=== PATIENT | female | born 2000 | race Caucasian/White ===

== ENCOUNTER 2023-04-11 21:55 | Emergency (ER) | payer BC, SELFPAY ==
--- NOTE | ~2023-04-11 | XR_ITS ---
PA, oblique, and lateral views of the right third finger CLINICAL HISTORY: Injury FINDINGS: No fracture or dislocation seen. Osseous alignment is anatomic. Joint spaces are preserved. Soft tissues are unremarkable. IMPRESSION: Unremarkable exam. Reviewed, dictated and finalized at location M. IMPRESSION: Unremarkable exam.
[2023-04-11 21:58] VITALS: BP 128/79; PULSE 99; RESP 18; TEMP 36.9; O2SAT 99
[2023-04-12] MEDS: IBUPROFEN 400 MG TABLET 800 MG PO (00:45)
--- NOTE | 2023-04-12 00:46 | ED.GENADULT ---
HPI - General Adult General Chief complaint: Extremity Problem,Nontraumatic Stated complaint: R hand third finger injury Time Seen by Provider: 04/12/23 00:45 Source: patient Mode of arrival: ambulatory Limitations: no limitations History of Present Illness HPI narrative: This is a 22-year-old female who presents to the ED with chief complaint of right hand injury occurring just prior to arrival. Reports she Cluster hand in the door and injured to the right middle finger. Reports immediate pain. She denies any further site of pain or injury. Denies numbness or weakness. Related Data Allergies Allergy/AdvReac Type Severity Reaction Status Date / Time No Known Allergies Allergy Verified 04/11/23 22:01 Exam Narrative: GENERAL: Well-appearing, well-nourished, and in no acute distress. HEAD: Normocephalic, atraumatic. EYES: PERRLA and EOMI. ENT: Nares clear, no rhinorrhea or epistaxis. Mucous membranes moist. Oropharynx without tonsillar hypertrophy exudate or other lesions. NECK: Supple. No adenopathy or masses. CHEST: No respiratory distress. Clear to auscultation. No wheezes rales or rhonchi HEART: Regular rate and rhythm. No murmur heard. Normal peripheral pulses. ABDOMEN: Soft, nontender, nondistended, normal active bowel sounds. MSK: Right hand: Right middle finger with bruising to the nail plate. She is most tender at the distal right middle finger. No obvious deformity. Minimal bruising otherwise. Neurovascularly intact distally. Left hand: Benign. SKIN: Warm, dry, no rash. Good cap refill. NEURO: Alert and oriented x3. No focal deficits. PSYCH: Normal mood and affect. Course Vital Signs Vital signs: Vital Signs Temperature 98.5 F 04/11/23 21:58 Pulse Rate 99 04/11/23 21:58 Respiratory Rate 18 04/11/23 21:58 Blood Pressure 128/79 04/11/23 21:58 Pulse Oximetry 99 04/11/23 21:58 Oxygen Delivery Room Air 04/11/23 21:58 Temperature 98.5 F 04/11/23 21:58 Pulse Rate 99 04/11/23 21:58 Respiratory Rate 18 04/11/23 21:58 Blood Pressure 128/79 04/11/23 21:58 Pulse Oximetry 99 04/11/23 21:58 Oxygen Delivery Room Air 07/18/23 21:58 Medical Decision Making MDM Narrative Medical decision making narrative: This is a 22-year-old female who presents to the ED with chief complaint of right middle finger injury occurring just prior to arrival after shutting her hand in a car door. Vitals are normal. Exam does reveal some bruising to the nail plate distally, as well as tenderness distally in the right middle finger. No gross deformity or other bruising. Minimal swelling. X-ray does not reveal any obvious fractures. Symptoms are consistent with contusion. She was placed in a metal finger splint and encouraged to follow-up with PCP. Supportive measures for home discussed and return precautions were given. Patient is understanding and agreeable with this plan for discharge and follow-up. Vital Signs Vital Signs: Vital Signs Temperature 98.5 F 04/11/23 21:58 Pulse Rate 99 04/11/23 21:58 Respiratory Rate 18 04/11/23 21:58 Blood Pressure 128/79 04/11/23 21:58 Pulse Oximetry 99 04/11/23 21:58 Oxygen Delivery Room Air 04/11/23 21:58 Temperature 98.5 F 04/11/23 21:58 Pulse Rate 99 04/11/23 21:58 Respiratory Rate 18 04/11/23 21:58 Blood Pressure 128/79 04/11/23 21:58 Pulse Oximetry 99 04/11/23 21:58 Oxygen Delivery Room Air 04/11/23 21:58 Discharge Plan Discharge Clinical Impression: Contusion of right middle finger Patient Disposition: Home, Self-Care Condition: Stable Instructions: Antibiotic Form Additional Instructions: Your exam and imaging are reassuring. Symptoms are consistent with contusion. There may be an occult fracture not picked up by x ray today. Please take tylenol and ibuprofen every 4-6 hours as needed. Use 600 mg ibuprofen and 500mg tylenol. IF you have any new or worsening symptoms that
== END 2023-04-12 00:55 | disposition home or self-care (01) ==
PROVIDERS: Emergency Provider Physician Assistant; PCP Family Medicine
DX: S60.031A Contusion of right middle finger without damage to nail, initial encounter (principal); W23.0XXA Caught, crushed, jammed, or pinched between moving objects, initial encounter
CPT/HCPCS: 29130; 73140; 99283; A9270

== ENCOUNTER 2024-08-27 15:05 | Outpatient (CLI) | payer BC, SELFPAY ==
--- NOTE | ~2024-08-27 | XR_ITS ---
EXAMINATION: XR lumbar spine 2-3V, XR hip BI 2V w AP pelvis DATE: 08/27/2024 15:42 INDICATION: Low back pain and pelvic pain, left greater than right TECHNIQUE: 1. Anteroposterior and lateral views of the lumbar spine, and cone-down lateral view of the lumbosacr al junction were obtained. 2. Anteroposterior the pelvis and anteroposterior and frog-leg lateral views of the left and of the r ight hips. COMPARISON: None. FINDINGS: Lumbar spine: Alignment is normal. Vertebral body and disc heights are normal. Profiled portions of the lumbar face t joints appear normal. Pelvis and bilateral hips: Alignment is normal. No fracture or suspected osteonecrosis. Bilateral hip and sacroiliac joint space s are normal. Soft tissues are unremarkable. IMPRESSION: 1. Negative lumbar spine, pelvis and bilateral hip radiographs. Reviewed, dictated and finalized at location A. R LINEMAN TECHNICIAN IMPRESSION: 1. Negative lumbar spine, pelvis and bilateral hip radiographs.
== END 2024-08-27 15:06 | disposition home or self-care (01) ==
PROVIDERS: PCP Family Medicine
DX: M54.50 Low back pain, unspecified (principal)
CPT/HCPCS: 72100; 73521

== ENCOUNTER 2024-12-30 14:22 | Outpatient (CLI) | payer BC, SELFPAY ==
[2024-12-30 14:40] LABS: Basophils Percent Auto 0.6 % (0.2-1.2); Eosinophils Absolute Auto 0.1 K/mm3 (0-0.3); Eosinophils Percent Auto 2.3 % (0-4.4); Hemoglobin 11.4 g/dL (12.0-15.0); Immature Granulocyte Absolute 0.01 K/mm3 (0.00-0.031); Immature Granulocyte Percent A 0.2 % (0-0.5); Lymphocytes Absolute Auto 1.57 K/mm3 (0.9-3.2); Lymphocytes Percent Auto 32.7 % (18.3-44.2); Mean Corpuscular HGB Conc 32.6 g/dl (32-36); Mean Corpuscular Hemoglobin 27.2 pg (26-34); Mean Corpuscular Volume 83.5 fl (80-100); Mean Platelet Volume 9.7 fl (7.4-10.4); Monocytes Absolute Auto 0.5 K/mm3 (0.1-0.6); Neutrophils Absolute Auto 2.6 K/mm3 (1.3-6.7); Neutrophils Percent Auto 54.2 % (45.5-73.1); Platelet Count Result 243 k/mm3 (150-375); Red Blood Count 4.19 M/mm3 (4.2-5.4); Red Cell Distribution Width 13.8 % (11.5-14.5); White Blood Count 4.8 K/mm3 (4.5-10.0)
--- OUTSIDE RECORDS SUMMARY | 2024-12-30 16:29 | XMS_ITS | Clinical Summary ---
Author Organization [facility] Address [address] [place] [address] Care Team Providers Care Ssrs Report Developer Name Role Phone Unavailable Primary Care Provider Unavailabl e Source Comments [facility],non-owned Affiliates and Associated Physician Practices is amultiple site organization consisting of ambulatory clinics and hospital sitesin [place], [place], [place] and [place]. This disclosure is being madepursuant to the Care Everywhere program and may not contain all information available regarding this patient. Last updated 18.[facility] Allergies No known active allergies Medications * Be aware that medications may not be up to date on this document. Alwaysverify current medications with the patient. Medication Sig Dispensed Refills Start Date End Date Status albuterol HFA (PROVENTIL;VENTOLIN;[place] OAIR) 108 (90 BASE) MCG/ACT inhaler Inhale 2 Puffs by mouth every 6 hours as needed Active Active Problems Problem Noted Date Diagnosed Date Spinal asymmetry (< 10 degrees) 10/08/2015 Midline thoracic back pain 10/08/2015 Social History Tobacco Use Types Packs/Day Years Used Date Smoking Tobacco: Never Assessed Sex and Gender Information Value Date Recorded Sex Assigned at Not on file Gender Identity Not on file Sexual Orientation Not on file Last Filed Vital Signs Vital Sign Reading Time Taken Comments Blood Pressure - - Pulse - - Temperature - - Respiratory Rate - - Oxygen Saturation - - Inhaled Oxygen Concentration - - Weight 48.7 kg (107 lb 5.8 oz) 10/08/2015 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 Height 148.7 cm (4' 10.54 ) 10/08/2015 3:[address] Body Mass Index 22.02 10/08/2015 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 Plan of Treatment Health Maintenance Due Date Last Done Comments PAP SMEAR 2002 HIV SCREENING 2017 HPV VACCINE (1 - 3-dose series) 2017 CHLAMYDIA/GONORRHEA SCREENING 2018 MENINGOCOCCAL (Group B) VACC INE SHARED DECISION-MAKING (1 of 2 - Standard) 2018 HEPATITIS C SCREENING 09/18/2020 DTAP/TDAP/TD VACCINES (1 - Tdap) 2021 HEPATITIS B VACCINE (1 of 3 - 19+ 3-dose series) 2021 COVID-19 VACCINE (1 - 2023-2 5 season) 2024 DEPRESSION SCREENING 09/25/2024 INFLUENZA VACCINE (Season Ended) 2025 ZOSTER VACCINE (1 of 2) 2052 HIB VACCINE Aged Out No longer eligi ble based on patient's age to complete this topic MENINGOCOCCAL GROUPS A/C/Y/W VACCINE Aged Out No longer eligible b ased on patient's age to complete this topic PNEUMOCOCCAL VACCINE Aged Out No long er eligible based on [place] [address]
--- OUTSIDE RECORDS SUMMARY | 2024-12-30 16:30 | XMS_ITS | Continuity of Care Document ---
Author Organization [facility] Address [address] [place] [address] [address] [place] [address] Phone Care Team Providers Care Physician Relations Representative Name Role Phone Villareal OD, Héctor Unavailable Unavailable Procedures Procedure Date Eye Exam, New Patient Refraction Advance Directives Directive Yes / No Effective Date File Name No Information Encounters Encounter Description Practice Location Reason(s) For Visit Diagnoses Date Provider Providers Copied on Encounter Merged with [facility], [address] [place], [place], [id number], [place] tel:[phone] [facility] No Information [phone] Villareal OD Héctor. [address] , [address], [place], [address], [place]. tel:[phone] Family History Family Member Type Diagnosis Age At Onset No Information Payers Payer name Insurance type Covered constitution party ID Authoriza tichidi(s) Medicaid [facility] [id number] Social History Type Description Quantity Date Captured Comments Sex Female Smoking Status No Information Chief Complaint And Reason For Visit No Information Reason For Referral Reason For Referral No Information History Of Present Illness Encounter Date Complaint History Of Prese nt Illness No Information Functional Status Date Functional Assessmen t No Information Instructions Date Instruction Additional Infor mation No Information Assessments Type Assessment Date No Information Patient Care Teams Name Effective Dates (start - stop) Status Members No Information
--- OUTSIDE RECORDS SUMMARY | 2024-12-30 16:30 | XMS_ITS | Data Portability ---
Author Organization [place] - [email or web address], Main Office Address [address] [place] [address] Assessment No assessment recorded. Plan of Treatment Reminders Order Date Submit Date Provider Last Modified By Organization Details Last Modified Time Details Appointments None recorded. Lab CBC w/ auto diff 2024 025 [facility] (Lab), [address] [place], [address], 5 03:07:32 unlisted lab - food allergy profile [address] [address] (Lab), [address] [place], [address], 5 08:11:24 vitamin D, 25-hydroxy, total, serum [address] (Lab), [address] [place], [address], 4 08:34:21 CBC w/ auto diff [address] (Lab), [address] [place], [address], 4 08:34:21 TSH, serum or plasma [address] (Lab), [address] [place], [address], 4 08:34:21 vitamin B12 + folate, serum or blood [address] (Lab), [address] [place], [address], 4 08:34:22 CMP, serum or plasma 2023 024 [facility] (Lab), [address] [place], [address], 4 22:00:19 HbA1c (hemoglobin A1c), blood [address] (Lab), [address] [place], [address], 4 08:34:21 Referral physical therapist referral - Please call pt to schedule 2024 025 [place] [facility], [address] [facility], [place], [address], 5 14:56:47 Procedures upper endoscopy procedure (EGD) (PROC) 2024 025 [facility] (Pre-Screen), [address] [place], [address], 5 08:08:59 Surgeries None recorded. Imaging XR, abdomen - pLease comment on stool burden on upright KUB thanks [address] [facility], [address] [address], [place], [address], 5 07:57:49 US, abdomen, complete [address] [facility], [address] [address], [facility], [place], [address], 5 08:35:47 XR, lumbosacral spine, 2 or 3 view 2023 024 [email or web address] 256 Not available 4 08:59:54 XR, hip + pelvis, bilateral 2023 024 SERGEI Not available 4 11:33:34 Medication Orders amoxicillin 500 mg capsule 2024 025 [place] [id number], [address], [place], [place], [id number], 5 11:01:06 omeprazole 20 mg capsule,del ayed release 2024 025 [place] [facility] #[id number], [address], [place], [place], [id number], 15:32:17 Patient TargetsNo targets recorded. Patient Instructions Encounter Date Encounter Id Patient Instructions Last Modified By Organization Details Last Modified Time 11/21/2024 [id number] Discussed with the patient in detail possibility of IBS has been discussed possibility of constipation has been discussed. Also gallbladder dysfunction has been discussed patient's abdomen is benign on examination and the pain is more diffuse. I will advise patient to get the ultrasound of the abdomen I also reviewed the lab workup which shows normal liver functions. We will proceed with the upper endoscopy to rule out peptic ulcer disease encouraged patient to take some MiraLax and fiber follow with me in 3-4 months if all these tests are normal patient can try dicyclomine to see if it has the bloating and gas. Not available 11/21/2024 16:30:51 Reason for Referral Physical Therapist Referral for Low back pain Please call pt to schedule Referring Physician: Deirdre Hogue, Family Medicine, Encounter Date: 10/01/2024 Results Created Date Observation Date Name Description Value Unit Range Abnormal Flag Note LastModifiedBy Organization Detail LastModifiedTime 08/28/2008/27/2024 XR, chest , 2 view No observ ation record ed. [email or web address] [place] [address] [address], [place], [address], 10/31/2024 14:41:34 08/28/20 24 08/27/2024 XR, hip + pelvi s, bilat eral No observ ation record ed. [facility] [address], [place], [address], 08/28/2024 12:17:39 Result Notes None recorded. Problems Name Problem SNOMED Code Status Onset Date Resolution Date Notes Provider Name and Address Organization Details Recorded Time Low back pain 178285022 Active 2023 CARLOS Haney [address], [address], [place], [address], [employer] 4 14:55:00 Headache 62673590 Active 2023 CARLOS Haney [address], [address], [place], [address], [employer] 4 14:58:40 Anxiety 47942549 Active 2023 CARLOS Haney [address], [address], [place], [address], [employer] 4 15:01:24 Stomach ache 676903782 Active 2023 CARLOS Haney [address], [address], [place], [address], [employer] 4 15:03:20 Fatigue 59099500 Active 2023 CALROS Haney [address], [address], [place], [address], [employer] 4 15:06:43 Leukopenia 50650588 Active 2024 CARLOS Haney [address], [address], [place], [address], [employer] 5 15:31:57 Nausea 175038174 Active 2024 CARLOS Haney [address], [address], [place], [address], [employer] 5 09:01:34 Irritable bowel syndrome 57883232 Active 2024 Matt Myers MD [address] [facility], [address], [place], [address], [employer] 5 16:29:03 Constipation 21379256 Active 2024 Matt Myers MD [address], [address], [place], [address], [employer] 5 16:29:12 Abdominal pain 76932247 Active 2024 Matt Myers MD [address] [facility], [address], [place], [address], [employer] 5 16:30:04 Cervical lymphadenopath y 895276508 Active 2024 CARLOS Haney [address] [facility], [address] [facility], [place], [address], [employer] 5 10:59:52 Problem Notes None recorded. Procedures Surgical History Date Name Laterality Status Provider Name and Address Organization Details Recorded Time 2 Remove tonsils and adenoids completed Amanda Aceves RN [facility] [employer] [facility] 08/27/2024 14:45:00 Imaging Results Imaging Date Name Status LastModified by Organiz ation Details LastModified Time 08/27/2024 XR, chest, 2 view completed [email or web address] [address], [address], 10/31/2024 14:41:34 08/27/2024 XR, hip + pelvis, bilateral completed [address], [address], 08/28/2024 12:17:39 Procedure Notes None recorded. Medical Equipment None Reported. Allergies No known drug allergies Medications Name Sig Start Date Stop Date Status Note LastModified by Organization Details LastModified Time amoxicillin 500 mg capsule TAKE 1 CAPSULE BY MOUTH EVERY 12 HOURS FOR 10 DAYS DIRECTED active Not Available Not Available No t Available meloxicam 7.5 mg tablet TAKE 1 TABLET BY MOUTH DAILY FOR 14 DAYS 08/27 completed Not Available Not Available Not Available benzonatate 100 mg capsule TAKE 1 CAPSULE BY MOUTH THREE TIMES DAILY FOR 10 DAYS 08/27 completed Not Available Not Available Not Available omeprazole 20 mg capsule,del ayed release Take 1 capsule every day by oral route as directed for 30 days. active Not Available Not Available No t Available methylpredn isolone 4 mg tablets in a dose pack FOLLOW PACKAGE DIRECTION S 11/21 completed Not Available Not Available Not Available albuterol sulfate HFA 90 mcg/actuati on aerosol inhaler INHALE 1 TO 2 INHALATIO N BY MOUTH EVERY 4 HOURS NEEDED FOR WHEEZING 12/04 completed Not Available Not Available Not Available cyclobenzap rine 5 mg tablet 08/27 completed Not Available Not Available Not Available Vitals Date Recorded Body weight Body mass index (BMI) Body height Body temperature Heart rate Respiratory rate Oxygen saturation Oxygen saturation in Arterial blood by Pulse oximetry Pain severity - 0-10 verbal numeric rating [Score] - Reported Systolic blood pressure Diastolic blood pressure Provider Name and Address Organization Details Last Updated DateTime 4 93627.7 g 23.1 kg/m2 152.4 cm 97.9 [degF] 80 /min 20 /min 99 % 99 % 4 112 mm[Hg] 64 mm[Hg] Amanda Aceves RN [facility] [email or web address] 4 14:44:20 Date Recorded Body height Body mass index (BMI) Body weight Body temperature Heart rate Respiratory rate Oxygen saturation Oxygen saturation in Arterial blood by Pulse oximetry Pain severity - 0-10 verbal numeric rating [Score] - Reported Systolic blood pressure Diastolic blood pressure Provider Name and Address Organization Details Last Updated DateTime 5 152.4 cm 23.7 kg/m2 01717.4 8 g 98.4 [degF] 98 /min 20 /min 98 % 98 % 0 118 mm[Hg] 64 mm[Hg] Amanda Aceves RN [facility] [email or web address] 5 15:17:58 Date Recorded Body height Body mass index (BMI) Body weight Heart rate Oxygen saturation Oxygen saturation in Arterial blood by Pulse oximetry Systolic blood pressure Diastolic blood pressure Provider Name and Address Organization Details Last Updated DateTime 5 152.4 cm 23.6 kg/m2 24971.6 8 g 96 /min 99 % 99 % 120 mm[Hg] 62 mm[Hg] AAYUSH Angulo [facility] [employer] [facility] 5 16:00:20 Date Recorded Body height Body mass index (BMI) Body weight Body temperature Heart rate Respiratory rate Oxygen saturation Oxygen saturation in Arterial blood by Pulse oximetry Pain severity - 0-10 verbal numeric rating [Score] - Reported Systolic blood pressure Diastolic blood pressure Provider Name and Address Organization Details Last Updated DateTime 5 152.4 cm 24.1 kg/m2 71519.9 6 g 97.9 [degF] 69 /min 20 /min 99 % 99 % 2 112 mm[Hg] 70 mm[Hg] Amanda Aceves RN [facility] [employer] [facility] 5 10:49:13 Social History Question Answer Notes LastModified by Organizat ion Details LastModified Time Tobacco Smoking Status Never Smoker Amanda Aceves RN [facility] [employer] [facility] 08/27/2024 14:46:48 Do You Have An Advance Directive? No Information not available 10/01/2024 What Is Your Level Of Alcohol Consumption? Occasional Information not available 08/27/2024 What Is Your Level Of Caffeine Consumption? Moderate Information not available 08/27/2024 In The 14 Days Before Symptom Onset, Have You Had Close Contact With A Laboratory-confi rmed COVID-19 While That Case Was Ill? No Information not available 08/27/2024 In The 14 Days Before Symptom Onset, Have You Had Close Contact With A Person Who Is Under Investigation For COVID-19 While That Person Was Ill? No Information not available 08/27/2024 Are You Currently Employed? Yes Information not available 08/27/2024 What Type Of Diet Are You Following? REGULAR Information not available 08/27/2024 Which Illicit Or Recreational Drugs Have You Used? MJ Information not available 08/27/2024 Do You Or Have You Ever Used E-cigarettes Or Vape? Current User Of Electronic Cigarettes Information not available 08/27/2024 What Is Your Occupation? [employer] Information not available 08/27/2024 Have There Been Any Changes To Your Family Or Social Situation? No Information not available 08/27/2024 Do You Use Insect Repellent Routinely? No Information not available 08/27/2024 Where Do You Live? [facility] Information not available 08/27/2024 Do You Have A Medical Power Of Echo Tech? No Information not available 10/01/2024 How Many Children Do You Have? 0 Information not available 08/27/2024 Do You Have Any Pets? Yes Information not available 08/27/2024 What Is Your Relationship Status? Single Information not available 08/27/2024 Do You Use Your Seat Belt Or Car Seat Routinely? Yes Information not available 08/27/2024 Do You Have Smoke And Carbon Monoxide Detectors In Your Home? Yes Information not available 08/27/2024 At What Age Did You Start Smoking Tobacco? -1 Information not available 08/27/2024 Are You Passively Exposed To Smoke? Yes Information not available 08/27/2024 Do You Or Have You Ever Used Smokeless Tobacco? Never Used Smokeless Tobacco Information not available 08/27/2024 Are There Any Smokers In Your House? Yes Information not available 08/27/2024 Do You Participate In Social Media? Yes Information not available 08/27/2024 Do You Feel Stressed (tense, Restless, Nervous, Or Anxious, Or Unable To Sleep At Night)? [id number] Information not available 08/27/2024 Do You Use Any Illicit Or Recreational Drugs? Yes Information not available 08/27/2024 Do You Use Sunscreen Routinely? No Information not available 08/27/2024 Have You Recently Traveled Abroad? No Information not available 08/27/2024 Do You Or Have You Ever Used Any Other Forms Of Tobacco Or Nicotine? Yes Information not available 08/27/2024 How Many Years Have You Used E-cigarettes Or Vape? 4 Information not available 08/27/2024 Sex: Unknown Functional Status Question Answer Note LastModified by Organizat ion Details LastModified Time What is your exercise level? Occasional Information not available 08/27/2024 Mental Status None recorded. Family History Nothing Reported. Medical History No medical history recorded. Gynecological History Statement/Question Response Flow Moderate Date of LMP 09/12/2024 Duration of Flow (days) 5 Current Control Method None Age at Menarche 14 Most Recent Mammogram Date of Last Colonoscopy Frequency of Cycle (Q days) 28 Most Recent Bone Density Menses Monthly Y Date of Last Pap Smear Obstetrics History GPAL:G 0 P 0 0 0 0 Past Encounters Encounter ID Performer Location Encounter Start Date Encounter Closed Date Diagnosis/Indication Diagnosis SNOMED-CT Code Diagnosis ICD10 Code Diagnosis Note [id number] CARLOS Haney [address] [address] 08/27/2024 14:30:55 08/27/2024 15:21:21 Adult health examination 213124983 Z00.00 Health maintenanc e reviewedPa tient questions answered Low back pain 981257233 M54.50 Pain radiates into VAN hips. Headache 99337010 R51.9 Advised to go for an eye examIbupro fen and tylenol for pain management Anxiety 87670371 F41.9 admits to generalize d health anxiety. Not interested in medication s Stomach ache 364685022 R 10.9 Worsens after eating, bloating with generalize d discomfort Family his tory of diabetes mellitus 221543600 Z83.3 Concerns with polyuria Fatigue 05527748 R53.83 [id number] CARLOS Haney [address] [address] 10/01/2024 15:01:49 10/01/2024 15:39:22 Low back pain 767089691 M54.50 Pain radiates into VAN hips.Has tried and failed meloxicam and cyclobenza chirag. Worse with activity. Stomach ache 813908045 R 10.9 Worsens after eating, bloating with generalize d discomfort Leukopenia 08975557 D72. 819 Headache 26673585 R51.9 Advised to add Vitamin B2 and MagnesiumI buprofen and tylenol for pain management [id number] Matt Myers MD [facility] General Surgery [address] [facility], [address] [place] [address] 11/21/2024 15:58:30 11/21/2024 16:45:17 Nausea 205529700 R11.0 Stomach ache 830140762 R 10.9 Irritable bowel syndrome 37605490 K58.9 Constipation 06403446 K5 9.00 Abdominal pain 87297429 R10.9 [id number] CARLOS Haney [facility] [place] [address] [place] [address] 12/04/2024 10:33:41 12/04/2024 12:32:37 Cervical lymphadenopathy 450025486 R59.0 Lesion present in right throat, tonsils are absent. Will FU in 1 week to ensure symptoms have resolved Health Concerns Section Related Observation LastModified by Organization Detai ls LastModified Time None Recorded Concern Status LastModified by Organization Details LastModified Time None Recorded Advance Directives Directive N: Payers Encounter Date Sequence Insurance Name Policy Number Policy Cordero Covered Member ID Cordero Member ID Guarantor Name 08/27/2024 1 [place] [id number] Kalie Hebert [id number] Kalie Hebert 10/01/2024 1 [place] [id number] Kalie Hebert [id number] Kalie Hebert 11/21/2024 1 [place] [id number] Kalie Hebert [id number] Kalie Hebert 12/04/2024 1 [place] [id number] Kalie Hebert [id number] Kalie Hebert Notes Date Note Type Note Provider Name and Address Organization Details Recorded Time 08/27/2024 text/html Kalie Hebert is a 23 year old female patient 23 year old female patient here today to establish care. She has not been to a doctor for a couple years. she went to last week for back pain, pain started 08/18/24. The back pain has not subsided, she has been prescribed muscle relaxers but she cannot stay awake when she takes this. She does not recall an injury, but notes that it just began hurting in the middle of the day. Pain is in the lower back, pelvic area, and VAN hips.Meloxicam did not help. She has been getting headaches. She notices these are after lunch at work daily. She has pain with associated nausea. Does sometimes happen when she is at home. She will have throbbing in the head and eyes. Believes she does have some visual blurring, is supposed to wear glasses. Concerns with stomach aches that occur after eating. She states that after eating a full meal she will feel bloated, denied N/V/D. States in the past had some imaging and did not get any results. She does have anxiety CARLOS Haney [address] [facility], [address], [place], [address], [employer] 08/27/2024 15:19:14 10/01/2024 text/html Kalie Hebert is a 23 year old female patient 23 year old female patient here today to establish care. She has not been to a doctor for a couple years. She has had back pain since 08/18/24, did try meloxicam and cyclobenzaprine, not effective. She has been getting headaches. She notices these are after lunch at work daily. She has pain with associated nausea. Does sometimes happen when she is at home. She will have throbbing in the head and eyes.She did get glasses and notes some improvement. She has been wearing the glasses at work for the last 3 weeks. Headaches are occurring 1-2 times per week. Concerns with stomach aches that occur after eating. She states that after eating a full meal she will feel bloated, denied N/V/D. States in the past had some imaging and was told she has acid reflux. She does have anxiety CARLOS Haney [address] [facility], [address], [place], [address], [employer] 10/01/2024 15:36:25 11/21/2024 text/html patient is seen for same in the office patient is being seen for abdominal pain according to her she has pain all over her abdomen along with bloating gas constipation diarrhea. Also stated that she has problems with the nausea denies any vomiting this has been going on for 2-3 months has been getting worse. Also according to her she takes omeprazole 20 mg p.r.n. basis. Denies any trouble swallowing denies any previous upper endoscopies denies any blood in the stool. Does drink alcohol occasionally denies any use of marijuana. Matt Myers MD [address] [facility] [address], [place], [address], [facility] [employer] [facility] 11/22/2024 22:23:09 12/04/2024 text/html Kalie Hebert is a 24 year old female patient here today with a sore throat She has concerns with a lesion in her right throat and pain rated 2/10. States her throat feels inflamed. Associated right cervical chain lymphadenopathy. No other symptoms or concerns today CARLOS Haney [address] [facility] [address], [place], [address], [employer] [facility] [employer] [facility] 12/04/2024 11:05:06 OBGyn Episode No OBEpisode recorded.
--- OUTSIDE RECORDS SUMMARY | 2024-12-30 16:30 | XMS_ITS | Clinical Summary ---
Author Organization [facility] Address [address] [place] [address] [place] [address] Care Team Providers Care Child Watch Attendant Name Role Phone Unavailable Primary Care Provider Unavailabl e Allergies No known active allergies Medications omeprazole (PriLOSEC) 20 mg Capsule, Delayed Release(E.C.) Take 20 mg by mouth one time as needed for Nausea. 10/03/2024 Active Active Problems No known active problems Encounters Date Type Department Care Team Description 12/30/2024 1:30 PM CDT Office Visit [facility] Oncology and Hematology - [place] [address] [facility] [address] [place] [address] Steven David MD Neutropenia, unspecified type (Primary Dx); Chronic anemia from Last 3 Months Family History Medical History Relation Name Comments No Known Problems Brother 1 No Known Problems Brother 2 No Known Problems Father No Known Problems Mother No Known Problems Sister 1 No Known Problems Sister 2 Relation Name Status Comments Brother 1 Alive Brother 2 Alive Father Alive Mother Alive Sister 1 Alive Sister 2 Alive Social History Tobacco Use Types Packs/Day Years Used Date Smoking Tobacco: Never Smokeless Tobacco: Never Tobacco Cessation:Counseling Given: Not Answered Alcohol Use Standard Drinks/Week Comments Yes 0 (1 standard drink = 0.6 oz pur e alcohol) Occasionally Comments Unknown Sex and Gender Information Value Date Recorded Sex Assigned at Not on file Legal Sex Female 2:52 PM [employer]OT [employer] Gender Identity Not on file Sexual Orientation Not on file Last Filed Vital Signs Vital Sign Reading Time Taken Comments Blood Pressure 111/73 12/30/2024 1:25 PM CDT Pulse 79 12/30/2024 1:25 PM CDT Temperature 36.6 C (97.8 F) 12/30/2024 1:25 PM CDT Respiratory Rate 16 12/30/2024 1:25 PM CDT Oxygen Saturation 98% 12/30/2024 1:25 PM CDT Inhaled Oxygen Concentration - - Weight 58.1 kg (128 lb) 12/30/2024 1:25 PM CDT Height - - Body Mass Index - - Plan of Treatment Upcoming Encounters Date Type Department Care Team (Late st Contact Info) Description 01/27/2025 4:30 PM CDT Telephone Check Up [facility] Oncology and Hematology - [place] [address] [facility] [address] [place] [address] Steven David MD [address] [facility] [address] [place] [address] Health Maintenance Due Date Last Done Comments CHLAMYDIA SCREENING (ANNUAL) 11-24 YEARS 2013 HPV VACCINES (1 - 3-dose series) 2017 DTAP/TDAP/TD VACCINES (1 - Tdap) 2021 HEPATITIS B VACCINES (1 of 3 - 19+ 3-dose series) 08/27 CERVICAL CANCER SCREENING 2023 HPV/Cotest (21-29) 2023 PAP SMEAR 2023 INFLUENZA VACCINE (#1) 2024 Preventative Visit- Commercial 09/25/2024 Insurance [facility] BLUE ACCESS/TRUE BLUE PPO
--- OUTSIDE RECORDS SUMMARY | 2024-12-30 16:30 | XMS_ITS | Encounter Summary ---
Author Organization [facility] Address [address] [place] [address] Care Team Providers Care Analog Ic Design Architect Name Role Phone Unavailable Primary Care Provider Unavailabl e Reason for Referral * Radiology Services (Routine) - Closed Specialty Diagnoses / Procedures Referred By Contac t Referred To Contact Diagnoses Neutropenia, unspecified type Procedures US ABDOMEN COMPLETE Steven David MD [address] [place] [address] Phone: tel: fax: [place] [phone] Referral ID Status Reason Start Date Expiration Date V isits Requested Visits Authorized [id number] Closed [facility] CTS 12/30/2024 01/30/2026 1 1 Reason for Visit * Reason Comments Establish Care Encounter Details Date Type Department Care Team (Late st Contact Info) Description 12/30/2024 1:30 PM CDT Office Visit [facility] Oncology and Hematology [place] [address] [address] [facility] [address] [place] [address] Steven David MD [address] [place] [address] Neutropenia, unspecified type (Primary Dx); Chronic anemia Social History Tobacco Use Types Packs/Day Years Used Date Smoking Tobacco: Never Smokeless Tobacco: Never Tobacco Cessation:Counseling Given: Not Answered Alcohol Use Standard Drinks/Week Comments Yes 0 (1 standard drink = 0.6 oz pur e alcohol) Occasionally Comments Unknown Sex and Gender Information Value Date Recorded Sex Assigned at Not on file 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 Problem list There is no problem list on file for this patient. Previous TREATMENT ? Measurable Disease ? Reason for Visit Kalie Hebert is a 24 y.o. female who was referred for consultation for leukopenia. History of present illness This is a 24-year-old female who is in good health except history of migraine and gastroesophageal reflux disease for which she had been taking omeprazole on as-needed basis referred to me for leukopenia. According to the patient she had labs done in August of last year that showed WBC count of 3.7. Repeat labs done in September 2024 that showed WBC count of 3.8. She denies being sick at that time. She denies any night sweats fevers and chills. Denies any weight loss. Denies any diarrhea and rash. No arthralgia. She has intermittent neck discomfort. Denies any new lumps bumps or lymphadenopathy. No other new complaints. Past Medical History No past medical history on file. GERD Migraine headaches Surgical History Past Surgical History: Procedure Laterality Date HX ADENOIDECTOMY 2011 HX TONSILLECTOMY 2011 Medications Current Outpatient Medications Medication Sig Dispense Refill omeprazole (PriLOSEC) 20 mg Capsule, Delayed Release(E.C.) Take 20 mg by mouth one time as needed for Nausea. No current facility-administered medications for this visit. Allergies No Known Allergies Immunizations: There is no immunization history on file for this patient. Family History Family History Problem Relation Name Age of Onset No Known Problems Father No Known Problems Mother No Known Problems Brother No Known Problems Brother No Known Problems Sister No Known Problems Sister Social History Social History Tobacco Use Smoking status: Never Smokeless tobacco: Never Substance Use Topics Alcohol use: Yes Comment: Occasionally Review of Systems Constitutional: Patient did not mention fever; no night sweats; no anorexia; no weight loss; no fatique NEENT: Patient did not mention headache; no change in vision; no change in hearing; no sore throat;no dysphagia Respiratory: Patient did not mention shortness of breath; no pleuritic chest pain; no cough; no hemoptysis Cardiac: Patient did not mention cardiac-like chest pain; no palpitations; no orthopnea; no PND; noDOE Breasts: Patient did not mention tenderness; no masses GI: Patient did not mention abdominal pain; no nausea; no vomiting; no diarrhea; no hematochezia; no melena : Patient did not mention dysuria; no frequency; no hesitancy; no hematuria 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 No signs of infection or swelling. Eyes: PERRL, conjunctiva normal HEENT: Atraumatic, external ears normal, nose normal, oropharynx moist, no pharyngeal exudates. no sinus tenderness Neck- normal range of motion, no tenderness, supple Respiratory: No respiratory distress, normal breath sounds, no rales, no wheezing Cardiovascular: Normal rate, normal rhythm, no murmurs, no gallops, no rubs GI: Soft, nondistended, normal bowel sounds, nontender, no splenomegaly, no hepatomegaly, no mass, no rebound, no guarding : No costovertebral angle tenderness Musculoskeletal: No edema, no tenderness, no deformities. Back- no tenderness Integument: Well hydrated, no rash, Digits and nails inspection normal Lymphatic: No lymphadenopathy noted Neurologic: Alert & oriented x 3, CN 2-12 normal, normal motor function, normal sensory function, no focal deficits noted Psychiatric: Speech and behavior appropriate ? labs No results found for this or any previous visit (from the past 24 hours). Labs from September 2024 showed WBC 3.8 hemoglobin 12.6 platelet 253,000 ANC 2100 Pathology ? Imaging & Other Studies Performance Status? Assessment / Plan: ? Leukopenia. Patient is a pleasant 24-year-old female who has been in good health except history of migraine and GERD referred to me for recently diagnosed leukopenia when she had labs done in August and repeat labs in September also showed persistent leukopenia. She denies any night sweats fevers and chills. Denies any weight loss. On my examination there is no evidence of lymphadenopathy and hepatosplenomegaly. I have discussed the differential diagnosis of leukopenia that includes drug-induced leukopenia, leukopenia secondary to infection especially viral infection, autoimmune leukopenia, liver and spleen disorder, bone marrow disorder and benign essential leukopenia. I will order the workup that will include CBC with differential, CMP, TOMAS, flow cytometric analysis for leukemia, EBV serology, flow cytometric analysis, and abdominal ultrasound. I will check iron and B12 level as well. Follow-up phone visit with me in 4 weeks. Have answered all the questions the patient andthe mother satisfaction. GERD. She is on Prilosec. Thank you very much for allowing me to participate in Kalie Hebert's evaluation and management. Please feel free to contact if I can be of any further assistance in your patient???s care requiringhematology or oncology evaluation. Sincerely, ? ? Steven David M.D. cell TOBACCO COUNSELING She is not a tobacco/nicotine user. Steven David MD ,12/30/2024 2:14 PM ? Total time spent 60 minutes, two third of the total time spent counseling patient [id number]. CC:? documented in this encounter Plan of Treatment Upcoming Encounters Date Type Department Care Team (Late st Contact Info) Description 01/27/2025 4:30 PM CDT Telephone Check Up [facility] Oncology and Hematology - Rm [address] [facility] [address] [place] [address] Steven David MD [address] [facility] [address] [place] [address] Scheduled Orders Name Type Priority Associated Diagnoses Orde r Schedule TOMAS SCREEN W/REFLEX Lab Routine Neutropenia, unspecified type Expected: 12/30/2024, Expires: 12/30/2025 CBC WITH DIFFERENTIAL Lab Stat Neutropenia, unspecified type Expected: 12/30/2024, Expires: 12/30/2025 COMPREHENSIVE METABOLIC PANEL Lab Stat Neutropenia, unspecified type Expected: 12/30/2024, Expires: 12/30/2025 FERRITIN Lab Routine Chronic anemia Expected: 12/30/2024, Expires: 12/30/2025 IRON, TIBC, AND PERCENT SATURATION Lab Routine Chronic anemia Expected: 12/30/2024, Expires: 12/30/2025 VITAMIN B12 AND FOLATE Lab Routine Chronic anemia Expected: 12/30/2024, Expires: 12/30/2025 US ABDOMEN COMPLETE Imaging Routine Neutropenia, unspecified type 1 Occurrences starting 12/30/2024 until 12/30/2025 FLOW CYTOMETRY PANEL Lab Routine Neutropenia, unspecified type Expected: 12/30/2024, Expires: 12/30/2025 EBV ANTIBODY PANEL Lab Routine Neutropenia, unspecified type Ordered: 12/30/2024 documented as of this encounter Visit Diagnoses Diagnosis Neutropenia, unspecified type- Primary Chronic anemia Anemia, unspecified documented in this encounter
[2024-12-30 16:33] LABS: Iron 34 ug/dL (37-170)
[2024-12-30 16:34] LABS: Alanine Aminotransferase 13 U/L (6-35); Albumin Level 4.7 g/dL (3.5-5.1); Alkaline Phosphatase 49 U/L (38-126); Anion Gap 11 mmol/L (4-12); Aspartate Amino Transferase 40 U/L (14-36); Bilirubin,Total 0.4 mg/dL (0.2-1.3); Blood Urea Nitrogen 8 mg/dL (7-17); Calcium 9.2 mg/dL (8.4-10.2); Carbon Dioxide 26 mmol/L (22-30); Chloride 99 mmol/L (98-107); Estimated Glomerular Filt Rate > 60; Glucose 96 mg/dL (65-110); Potassium 3.8 mmol/L (3.4-5.0); Sodium 136 mmol/L (137-145)
[2024-12-30 16:47] LABS: Percent Iron Saturation 8 % (20-50)
[2024-12-30 17:10] LABS: Ferritin 5.54 ng/mL (6.24-137)
[2024-12-30 17:41] LABS: Folic Acid 7.1 ng/mL (2.76->20)
[2024-12-31 16:24] LABS: EBV Virus Capsid Ag IgM Ab <36.00 U/mL
[2025-01-02 12:44] LABS: Anti Nuclear Antibody Pattern Nuclear, Speckled
== END 2024-12-30 14:23 | disposition home or self-care (01) ==
LOC: ANHLAB 14:23
PROVIDERS: PCP Family Medicine; Visit Provider Internal Medicine Hematology & Oncology
DX: D70.9 Neutropenia, unspecified (principal); D64.9 Anemia, unspecified
CPT/HCPCS: 36415; 80053; 82607; 82728; 82746; 83540; 83550; 85025; 86038; 86039; 86664; 86665; 88184

== ENCOUNTER 2025-01-17 08:48 | Outpatient (CLI) | payer BC, SELFPAY ==
--- NOTE | ~2025-01-17 | US_ITS ---
Abdominal Sonogram: Real-time sonographic imaging of the abdomen was performed. Clinical History: Neutropenia Findings: The liver appears normal with no evidence of mass lesion or bile duct dilatation. Main por french vein demonstrates normal direction of flow. The spleen is normal in size without evidence of foca l lesion. The gallbladder is well distended, and appears normal with no evidence of gallstone or wal l thickening. The common bile duct measures 2 mm. The visualized pancreas, aorta, and IVC are unrema rkable. The right kidney measures 10.4 cm in length and the left kidney measures 10.6 cm. There is no hydronephrosis or renal calculus. Impression: Unremarkable abdominal ultrasound. Reviewed, dictated and finalized at location . Impression: Unremarkable abdominal ultrasound.
--- OUTSIDE RECORDS SUMMARY | 2025-01-17 09:03 | XMS_ITS | Data Portability ---
Author Organization [place] [facility], Main Office Address [address] [place] [address] Assessment No assessment recorded. Plan of Treatment Reminders Order Date Submit Date Provider Last Modified By Organization Details Last Modified Time Details Appointments None recorded. Lab CBC w/ auto diff 2024 025 [facility] (Lab), [address] [place], [address], 5 03:07:32 unlisted lab - food allergy profile [id number] [address] (Lab), [address] [place], [address], 5 08:11:24 vitamin D, 25-hydroxy, total, serum [address] (Lab), [address] [place], [address], 4 08:34:21 CBC w/ auto diff [address] (Lab), [address] [place], [address], 4 08:34:21 TSH, serum or plasma [address] (Lab), [address] [place], [address], 4 08:34:21 vitamin B12 + folate, serum or blood [address] (Lab), [address] [place], [address], 4 08:34:22 CMP, serum or plasma 2023 024 [facility] (Lab), [address] [place], [address], 4 22:00:19 HbA1c (hemoglobin A1c), blood [address] (Lab), [address] [place], [address], 4 08:34:21 Referral physical therapist referral - Please call pt to schedule 2024 025 [facility], [address] [facility], [place], [address], 5 14:56:47 Procedures upper endoscopy procedure (EGD) (PROC) 2024 025 [facility] (Pre-Screen), [address] [place], [address], 5 08:08:59 Surgeries None recorded. Imaging XR, abdomen - pLease comment on stool burden on upright KUB thanks [address] [facility], [address], [address], 5 07:57:29 US, abdomen, complete [address] [facility], [address] [place] [address], [facility], [place], [address], 5 08:35:47 XR, lumbosacral spine, 2 or 3 view 2023 024 [email or web address] Not available 4 08:59:54 XR, hip + pelvis, bilateral 2023 024 SERGEI Not available 4 11:33:34 Medication Orders amoxicillin 500 mg capsule 2024 025 [id number], [address], [place], [place], [id number], 5 11:01:06 omeprazole 20 mg capsule,del ayed release 2024 025 [id number], [address], [place], [place], [id number], 15:32:17 Patient TargetsNo targets recorded. Patient Instructions Encounter Date Encounter Id Patient Instructions Last Modified By Organization Details Last Modified Time 11/21/2024 [id number] Discussed with the patient in detail possibility [...] if it has the bloating and gas. [email or web address] Not available 11/21/2024 16:30:51 Reason for Referral Physical Therapist Referral for Low back pain Please call pt to schedule Referring Physician: Deirdre Hogue, Family Medicine, Encounter Date: 10/01/2024 Results Created Date Observation Date Name Description Value Unit Range Abnormal Flag Note LastModifiedBy Organization Detail LastModifiedTime 08/28/2008/27/2024 XR, chest , 2 view No observ ation record ed. [email or web address] [place] [address] [address], [place], [address], 10/31/2024 14:41:34 08/28/20 24 08/27/2024 XR, hip + pelvi s, bilat eral No observ ation record ed. [facility] [address], [place], [address], 08/28/2024 12:17:39 Result Notes None recorded. Problems Name Problem SNOMED Code Status Onset Date Resolution Date Notes Provider Name and Address Organization Details Recorded Time Low back pain 552743229 Active 2023 CARLOS Haney [address], [address], [place], [address], [employer] 4 14:55:00 Headache 03806931 Active 2023 CARLOS Haney [address], [address], [place], [address], [employer] 4 14:58:40 Anxiety 83852991 Active 2023 CARLOS Haney [address], [address], [place], [address], [employer] 4 15:01:24 Stomach ache 547771943 Active 2023 CARLOS Haney [address], [address], [place], [address], [employer] 4 15:03:20 Fatigue 59235891 Active 2023 CARLOS Haney [address], [address], [place], [address], [employer] 4 15:06:43 Leukopenia 58044569 Active 2024 CARLOS Haney [address], [address], [place], [address], [employer] 5 15:31:57 Nausea 807638477 Active 2024 CARLOS Haney [address], [place], [address], [employer] 5 09:01:34 Irritable bowel syndrome 59650951 Active 2024 Matt Myers MD [address], [address], [place], [address], [employer] 5 16:29:03 Constipation 89688383 Active 2024 Matt Myers MD [address], [address], [place], [address], [employer] 5 16:29:12 Abdominal pain 14125443 Active 2024 Matt Myers MD [address], [address], [place], [address], [employer] 5 16:30:04 Cervical lymphadenopath y 468019050 Active 2024 CARLOS Haney [address], [address], [place], [address], [employer] 5 10:59:52 Anti-nuclear factor detected 955925491 Active 2024 CARLOS Haney [address] [facility], [address], [place], [address], [employer] 5 11:51:58 Iron deficiency anemia 21174160 Active 2024 CARLOS Haney [address] [facility], [address], [place], [address], [employer] 5 11:52:06 Problem Notes None recorded. Procedures Surgical History Date Name Laterality Status Provider Name and Address Organization Details Recorded Time 2 Remove tonsils and adenoids completed Amanda Aceves, BRANNON [place] [employer] [facility] 08/27/2024 14:45:00 Imaging Results Imaging Date Name Status LastModified by Organiz ation Details LastModified Time 08/27/2024 XR, chest, 2 view completed [place] [address], [place], [address], 10/31/2024 14:41:34 08/27/2024 XR, hip + pelvis, bilateral completed [facility] [address], [place], [address], 08/28/2024 12:17:39 Procedure Notes None recorded. Medical [...] completed Not Available Not Available Not Available FeroSul 325 mg (65 mg iron) tablet TAKE 1 TABLET BY MOUTH DAILY active Not Available Not Available No t Available Vitals Date Recorded Body weight Body mass index (BMI) Body height Body temperature Heart rate Respiratory rate Oxygen saturation Oxygen saturation in Arterial blood by Pulse oximetry Pain severity - 0-10 verbal numeric rating [Score] - Reported Systolic blood pressure Diastolic blood pressure Provider Name and Address Organization Details Last Updated DateTime 4 32157.7 g 23.1 kg/m2 152.4 cm 97.9 [degF] 80 /min 20 /min 99 % 99 % 4 112 mm[Hg] 64 mm[Hg] Amanda Aceves RN [place] [facility] [place] [employer] 4 14:44:20 Date Recorded Body height Body mass index (BMI) Body weight Body temperature Heart rate Respiratory rate Oxygen saturation Oxygen saturation in Arterial blood by Pulse oximetry Pain severity - 0-10 verbal numeric rating [Score] - Reported Systolic blood pressure Diastolic blood pressure Provider Name and Address Organization Details Last Updated DateTime 5 152.4 cm 23.7 kg/m2 60998.4 8 g 98.4 [degF] 98 /min 20 /min 98 % 98 % 0 118 mm[Hg] 64 mm[Hg] Amanda Aceves RN [facility] [employer] [facility] 5 15:17:58 Date Recorded Body height Body mass index (BMI) Body weight Heart rate Oxygen saturation Oxygen saturation in Arterial blood by Pulse oximetry Systolic blood pressure Diastolic blood pressure Provider Name and Address Organization Details Last Updated DateTime 5 152.4 cm 23.6 kg/m2 70759.6 8 g 96 /min 99 % 99 % 120 mm[Hg] 62 mm[Hg] Mimi Reid Carlos [facility] [employer] [facility] 5 16:00:20 Date Recorded Body height Body mass index (BMI) Body weight Body temperature Heart rate Respiratory rate Oxygen saturation Oxygen saturation in Arterial blood by Pulse oximetry Pain severity - 0-10 verbal numeric rating [Score] - Reported Systolic blood pressure Diastolic blood pressure Provider Name and Address Organization Details Last Updated DateTime 5 152.4 cm 24.1 kg/m2 27720.9 6 g 97.9 [degF] 69 /min 20 /min 99 % 99 % 2 112 mm[Hg] 70 mm[Hg] Amanda Aceves RN [facility] 5 10:49:13 Social History Question Answer Notes LastModified by Organizat ion Details LastModified Time Tobacco Smoking Status Never Smoker Amanda Aceves RN [facility] 08/27/2024 14:46:48 Do You Have An Advance Directive? No Information not available 10/01/2024 What Is Your Level Of Alcohol Consumption? Occasional Information not available 08/27/2024 What Is Your Level Of Caffeine Consumption? Moderate Information not available 08/27/2024 In The 14 Days Before Symptom Onset, Have You Had Close Contact With A [facility] While That Case Was Ill? No [...] not available 08/27/2024 What Is Your Occupation? [employer] Information not available 08/27/2024 Have There Been Any Changes To Your Family Or Social Situation? No Information not available 08/27/2024 Do You Use Insect Repellent Routinely? No Information not available 08/27/2024 Where Do You Live? [facility] Information not available 08/27/2024 Do You Have A Medical Power Of Clinical Study Manager? No Information not available 10/01/2024 How Many [...] Anxious, Or Unable To Sleep At Night)? [id number] Information not available 08/27/2024 Do You Use [...] SNOMED-CT Code Diagnosis ICD10 Code Diagnosis Note [id number] CARLOS Haney [facility] [place] [address] 08/27/2024 14:30:55 08/27/2024 15:21:21 Adult health examination 692387882 Z00.00 Health maintenanc e reviewedPa tient questions answered Low back pain 426741680 M54.50 Pain radiates into VAN hips. Headache 80820214 R51.9 Advised to go for an eye examIbupro fen and tylenol for pain management Anxiety 77728248 F41.9 admits to generalize d health anxiety. Not interested in medication s Stomach ache 908703161 R 10.9 Worsens after eating, bloating with generalize d discomfort Family his tory of diabetes mellitus 464218322 Z83.3 Concerns with polyuria Fatigue 73994214 R53.83 [id number] CARLOS Haney [address] [address] 10/01/2024 15:01:49 10/01/2024 15:39:22 Low back pain 340348749 M54.50 Pain radiates into VAN hips.Has tried and failed meloxicam and cyclobenza chirag. Worse with activity. Stomach ache 516916775 R 10.9 Worsens after eating, bloating with generalize d discomfort Leukopenia 67357413 D72. 819 Headache 68738676 R51.9 Advised to add Vitamin B2 and MagnesiumI buprofen and tylenol for pain management [id number] Matt Myers MD [facility] General Surgery [address] [address] 11/21/2024 15:58:30 11/21/2024 16:45:17 Nausea 354328906 R11.0 Stomach ache 181226950 R 10.9 Irritable bowel syndrome 58005105 K58.9 Constipation 63604996 K5 9.00 Abdominal pain 39084769 R10.9 [id number] Deirdre Hogue [address] [address] 12/04/2024 10:33:41 12/04/2024 12:32:37 Cervical lymphadenopathy 168658940 R59.0 Lesion present in right throat, tonsils [...] ID Guarantor Name 08/27/2024 1 [place] [id number] Kalie Landfried [id number] Kalie Landfried 10/01/2024 1 [place] [id number] Kalie Landfried [id number] Kalie Landfried 11/21/2024 1 [place] [id number] Kalie Hebert [id number] Kalie Hebert 12/04/2024 1 [facility]: (MXC[place] [id number] Kalie Hebert [id number] Kalie Hebert Notes Date Note Type [...] get any results. She does have anxiety Deirdre Hogue, HEARING AID FITTER [address] [facility], [facility] [address], [place], [address], [facility] [employer] [facility] 08/27/2024 15:19:14 10/01/2024 text/html Kalie Hebert is [...] She does have anxiety CARLOS Haney [address], [place], [address], [employer] [facility] [employer] [facility] 10/01/2024 15:36:25 11/21/2024 text/html patient is seen [...] use of marijuana. Matt Myers MD [address], [facility] [address], [place], [address], [employer] [facility] [employer] 11/22/2024 22:23:09 12/04/2024 text/html Kalie Hebert is a 24 year old female patient here today with a sore throat She has concerns with a lesion in her right throat and pain rated 2/10. States her throat feels inflamed. Associated right cervical chain lymphadenopathy. No other symptoms or concerns today CARLOS Haney [address], [facility] [address], [place], [address], [employer] [facility] 12/04/2024 11:05:06 OBGyn Episode No OBEpisode recorded.
--- OUTSIDE RECORDS SUMMARY | 2025-01-17 09:03 | XMS_ITS | Clinical Summary ---
Author Organization [facility] Juan Pablorakan Address [address] [place] [address] Care Team Providers Care Fur Dyer Name Role Phone Unavailable Primary Care Provider Unavailabl e Allergies No known active allergies Medications omeprazole (PriLOSEC) 20 mg Capsule, Delayed Release(E.C.) Take 20 mg by mouth one time as needed for Nausea. 10/03/2024 Active Active Problems No known active problems Encounters Date Type Department Care Team Description 01/07/2025 External Device Data ST[facility] ABSTRACTION Provider, Abstract 01/03/2025 Abstract [facility] Oncology and Hematology - Rm [address] Steven David MD 01/03/2025 Orders Only [facility] Oncology and Hematology [facility] [address] [place] [id number] Steven David MD 01/01/2025 Orders Only [facility] Oncology and Hematology - Rm [address] [place] [address] Steven David MD 01/01/2025 Results Follow-Up [facility] Oncology and Hematology [facility] [address] [place] [address] Steven David MD COMPREHENSIVE METABOLIC PANEL 12/31/2024 External Device Data ST[facility] ABSTRACTION Provider, Abstract 12/31/2024 External Device Data [facility] ABSTRACTION Provider, Abstract 12/31/2024 External Device Data [facility] ABSTRACTION Provider, Abstract 12/31/2024 Orders Only [facility] Oncology and Hematology - Rm [address] [place] [address] Steven David MD 12/30/2024 1:30 PM CDT Office Visit [facility] and Hematology [facility] [address] [place] [address] Steven David MD Neutropenia, unspecified [...] on file 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 Gender Identity Not on file Sexual Orientation [...] 01/27/2025 4:30 PM CDT Telephone Check Up [facility] Oncology and Hematology [facility] [address] [place] [address] Steven David MD [address] [facility] [employer] [address] [place] [address] Health Maintenance Due Date Last Done Comments CHLAMYDIA SCREENING (ANNUAL) 11-24 YEARS 2013 HPV VACCINES (1 - 3-dose series) 2017 DTAP/TDAP/TD VACCINES (1 - Tdap) 2021 HEPATITIS B VACCINES (1 of 3 - 19+ 3-dose series) 08/27 CERVICAL CANCER SCREENING 2023 HPV/Cotest (21-29) 2023 PAP SMEAR 2023 INFLUENZA VACCINE (#1) 2024 Procedures Procedure Name Priority Date/Time Associated Diagnosis Comments FLOW CYTOMETRY REPORT Routine 12/31/2024 11:31 AM CDT TOMAS PANEL Routine 12/30/2024 2:18 PM CDT EBV ANTIBODY PANEL Routine 12/30/2024 1: 01 PM CDT COMPREHENSIVE METABOLIC PANEL Routine 12/30/2024 12:31 PM CDT CBC WITH AUTODIFFERENTIAL Routine 2024 12:16 PM CDT from Last 3 Months Results * FLOW CYTOMETRY REPORT (12/31/2024 11:31 AM CDT) us Steven David MD PATHOLOGY/CYTOLOGY ORDERABLES F inal Result * TOMAS PANEL (12/30/2024 2:18 PM CDT) Blood us Steven David MD CHEMISTRY ORDERABLES Final Resu lt * EBV ANTIBODY PANEL (12/30/2024 1:01 PM CDT) Blood us Steven David MD CHEMISTRY ORDERABLES Final Resu lt * COMPREHENSIVE METABOLIC PANEL (12/30/2024 12:31 PM CDT) Blood us Steven David MD CHEMISTRY ORDERABLES Final Resu lt * CBC WITH AUTODIFFERENTIAL (12/30/2024 12:16 PM CDT) Blood us Steven David MD HEMATOLOGY ORDERABLES Final Res ult from Last [address] [facility] [address] [facility] BLUE ACCESS/TRUE BLUE PPO
--- OUTSIDE RECORDS SUMMARY | 2025-01-17 09:03 | XMS_ITS | Encounter Summary ---
Author Organization [facility] Address [address] [place] [address] Care Team Providers Care Supervisor Boarding Name Role Phone Unavailable Primary Care Provider Unavailabl e Encounter Details Date Type Department Care Team (Late st Contact Info) Description 01/01/2025 Results Follow-Up [facility] Oncology and Hematology [facility] [address] [place] [address] Steven David MD [address] [place] [address] [employer] [address] [place] [phone] COMPREHENSIVE METABOLIC PANEL Social History Tobacco Use Types Packs/Day Years Used Date Smoking Tobacco: Never Smokeless Tobacco: Never Alcohol Use Standard Drinks/Week Comments Yes 0 (1 standard drink = 0.6 oz pur e alcohol) Occasionally Comments Unknown Sex and Gender Information Value Date Recorded Sex Assigned at Not on file 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
--- OUTSIDE RECORDS SUMMARY | 2025-01-17 09:03 | XMS_ITS | Clinical Summary ---
Author Organization [facility] Address [address] [place] [address] Care Team Providers Care Seam Steamer Name Role Phone Unavailable Primary Care Provider Unavailabl e Source Comments [facility],non-owned Affiliates and Associated Physician Practices is amultiple site organization consisting of ambulatory clinics and hospital sitesin [place], [place], [place] and [place]. This disclosure is being madepursuant to the Care Everywhere program and may not contain all information available regarding this patient. Last updated 18.[facility] Allergies No known active allergies Medications * Be aware that medications may not be up to date on this document. Alwaysverify current medications with the patient. albuterol HFA (PROVENTIL;TOSIN CARTER;PROAIR) 108 (90 BASE) MCG/ACT inhaler Inhale 2 Puffs by mouth every 6 hours as needed Active Active Problems Problem Noted Date Diagnosed Date Spinal asymmetry (< 10 degrees) 10/08/2015 Midline thoracic back pain 10/08/2015 Encounters Date Type Department Care Team Description 01/07/2025 Telephone [facility] - Rheumatology [address] [facility] [address], [address] [place] [address] Jeff Roe DO Referral from Last 3 Months Social History Tobacco Use Types Packs/Day Years Used Date Smoking Tobacco: Never Assessed Comments No Sex and Gender Information Value Date Recorded Sex Assigned at Not on file 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 Gender Identity Not on file Sexual Orientation Not on file Last Filed Vital Signs Vital Sign Reading Time Taken Comments Blood Pressure - - Pulse - - Temperature - - Respiratory Rate - - Oxygen Saturation - - Inhaled Oxygen Concentration - - Weight 48.7 kg (107 lb 5.8 oz) 10/08/2015 3:09 P M 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 Height 148.7 cm (4' 10.54 ) 10/08/2015 3:09 PM C Body Mass Index 22.02 10/08/2015 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
== END 2025-01-17 08:49 | disposition home or self-care (01) ==
PROVIDERS: PCP Family Medicine; Visit Provider Internal Medicine Hematology & Oncology
DX: D70.9 Neutropenia, unspecified (principal)
CPT/HCPCS: 76700